=== PATIENT | male | born 1975 | race Caucasian/White ===

== ENCOUNTER 2017-05-06 08:53 | Inpatient (IN) ==
[2017-05-06] MEDS ORDERED: MORPHINE IV PRN (11:55)
[2017-05-06] MEDS ORDERED: DILAUDID IV PRN (12:42)
[2017-05-06] MEDS ORDERED: KEFZOL 1 GM/D5W 1 GM/50 ML IVPB ONE (13:41)
[2017-05-06] MEDS ORDERED: PEPCID ONE (13:41)
[2017-05-06] MEDS ORDERED: REGLAN ONE (13:41)
[2017-05-06] MEDS ORDERED: NEOSPORIN G.U. IRRIGANT ONE (13:48)
[2017-05-06] MEDS ORDERED: XYLOCAINE-MPF 2% ONE (13:50)
[2017-05-06] MEDS ORDERED: DIPRIVAN 1% ONE (13:51)
[2017-05-06] MEDS ORDERED: ROBINUL ONE (14:24)
[2017-05-06] MEDS ORDERED: ZOFRAN ONE (14:24)
[2017-05-06] MEDS ORDERED: DEMEROL ONE ×2 (14:25→15:01)
[2017-05-06] MEDS: DILAUDID ONE ×3 (15:22→15:35)
[2017-05-06] MEDS ORDERED: MILK OF MAGNESIA PO PRN (15:23)
[2017-05-06] MEDS ORDERED: ZOFRAN IV PRN (15:23)
[2017-05-06] MEDS ORDERED: NS 1,000 ML ONE (15:32)
[2017-05-06] MEDS ORDERED: PHENERGAN ONE (15:52)
[2017-05-06] MEDS: TYLENOL PO SCH ×2 (17:37→21:43)
[2017-05-06] MEDS: DILAUDID IV PRN ×2 (18:56→21:34)
[2017-05-06] MEDS: COLACE PO SCH (21:34)
[2017-05-06] MEDS: KEFZOL 1 GM/D5W 1 GM/50 ML IVPB IV SCH (21:34)
[2017-05-07] MEDS: OXY IR PO PRN ×5 (00:13→19:32)
[2017-05-07] MEDS: DILAUDID IV PRN ×6 (01:19→21:25)
[2017-05-07] MEDS ORDERED: BENADRYL PO ONE ×2 (04:08→10:36)
[2017-05-07] MEDS: TYLENOL PO SCH ×4 (04:41→23:33)
[2017-05-07] MEDS: KEFZOL 1 GM/D5W 1 GM/50 ML IVPB IV SCH ×3 (04:49→12:08)
[2017-05-07 05:53] LABS: HEMATOCRIT 32.9 % (42.0-52.0); HEMOGLOBIN 10.8 g/dL (14.0-18.0)
[2017-05-07 05:59] LABS: AGAP 13; BUN 6 mg/dL (8-22); CALCIUM 8.3 mg/dL (8.8-10.2); CHLORIDE 105 mmol/L (98-107); COSMO 281; POTASSIUM 3.5 mmol/L (3.5-5.1); SODIUM 142 mmol/L (136-145); TCO2 24 mmol/L (25-35)
[2017-05-07] MEDS: PERIDEX MT SCH ×3 (07:42→21:24)
[2017-05-07] MEDS: FERROUS SULFATE PO SCH (07:42)
[2017-05-07] MEDS: COLACE PO SCH (21:25)
[2017-05-08 05:52] LABS: HEMATOCRIT 33.7 % (42.0-52.0); HEMOGLOBIN 11.2 g/dL (14.0-18.0)
[2017-05-08] MEDS: TYLENOL PO SCH (09:28)
[2017-05-08] MEDS: OXY IR PO PRN ×2 (09:29→12:32)
[2017-05-08] MEDS: PERIDEX MT SCH (09:29)
[2017-05-08] MEDS: FERROUS SULFATE PO SCH (09:29)
[2017-05-08 11:53] VITALS: BP 130/80
[2017-05-08] MEDS ORDERED: FLUZONE QUAD 2017-2018 SYRINGE IM ONE (12:02)
== END 2017-05-08 13:55 | disposition home health service (06) ==
LOC: DIRADM 08:53 → 4N 10:30
PROVIDERS: ADMIT Orthopaedic Surgery; ATTEND Orthopaedic Surgery

== ENCOUNTER 2018-09-26 13:46 | Observation (INO) ==
[2018-09-26] MEDS ORDERED: D5W 1,000 ML IV PRN (14:44)
[2018-09-26] MEDS ORDERED: DULCOLAX PR PRN (14:44)
[2018-09-26] MEDS ORDERED: PHENOBARBITAL IV PRN (14:44)
[2018-09-26] MEDS ORDERED: MAALOX PLUS LIQUID PO PRN (14:44)
[2018-09-26] MEDS ORDERED: NICODERM PATCH TD PRN (14:44)
[2018-09-26] MEDS ORDERED: ZOFRAN IV PRN (14:44)
[2018-09-26] MEDS ORDERED: SENOKOT PO PRN (14:44)
[2018-09-26] MEDS ORDERED: TYLENOL PO PRN (14:44)
[2018-09-26] MEDS ORDERED: IMODIUM PO PRN (14:44)
[2018-09-26 15:50] LABS: UR AMPHETAMINES QUAL PRESUMPTIVE POSITIVE (NONE DETECT); UR BARBITUATES QUAL NONE DETECTED (NONE DETECT); UR BENZODIAZEPIN QUAL NONE DETECTED (NONE DETECT); UR CANNABINOIDS QUAL NONE DETECTED (NONE DETECT); UR COCAINE QUAL NONE DETECTED (NONE DETECT); UR METHADONE QUAL NONE DETECTED (NONE DETECT); UR METHAMPHETAMINE QUAL PRESUMPTIVE POSITIVE (NONE DETECT); UR OPIATES QUAL NONE DETECTED (NONE DETECT); UR OXYCODONE QUAL NONE DETECTED (NONE DETECT); UR PCP QUAL NONE DETECTED (NONE DETECT); UR PROPOXYPHENE QUAL NONE DETECTED (NONE DETECT); UR TCA QUAL NONE DETECTED (NONE DETECT)
[2018-09-26] MEDS ORDERED: TUBERSOL ID ONE (16:00)
[2018-09-26 16:03] LABS: URINE SOURCE VOIDED
[2018-09-26 16:12] LABS: HEMATOCRIT 46.3 % (42.0-52.0); HEMOGLOBIN 15.7 g/dL (14.0-18.0); INR 0.86; MCH 29.8 PG (27-31); MCHC 33.9 g/dL (33-37); MCV 87.9 FL (81-99); MPV 9.9 FL (7.4-10.4); PROTIME 12.2 Seconds (11.0-16.0); RBC 5.27 XMIL (4.7-6.1); RDW 12.3 % (11.5-14.5); WBC 7.51 X1000 (4.8-10.8)
[2018-09-26 16:16] LABS: BILIRUBIN URINE NEGATIVE (NEGATIVE); BLOOD URINE NEGATIVE (NEGATIVE); CLARITY CLEAR (CLEAR); COLOR YELLOW; GLUCOSE URINE NEGATIVE (NEGATIVE); KETONE URINE TRACE mg/dL (NEGATIVE); LEUKOCYTES URINE TRACE (NEGATIVE); NITRITE URINE NEGATIVE (NEGATIVE); PH URINE 6.5; PROTEIN URINE NEGATIVE (NEGATIVE); UROBILINOGEN URINE 1 mg/dL
[2018-09-26 16:22] LABS: AMYLASE 54 U/L (20-200); LIPASE 24 U/L (13-60)
[2018-09-26 16:25] LABS: AGAP 14; ALBUMIN 4.2 g/dL (3.5-5.0); ALKALINE PHOSPHATASE 100 U/L (32-122); BUN 8 mg/dL (8-22); CALCIUM 8.7 mg/dL (8.8-10.2); CHLORIDE 104 mmol/L (98-107); COSMO 282; CREATININE 0.6 mg/dL (0.7-1.2); ESTIMATED GFR > 60; GLUCOSE 114 mg/dL (70-104); GOT 13 U/L (10-34); GPT 13 U/L (10-44); SODIUM 142 mmol/L (136-145); TCO2 25 mmol/L (25-35)
[2018-09-26 16:32] LABS: URINE BACTERIA 1+ /HFP; URINE CAST NONE SEEN /LPF; URINE CRYSTAL CA OXALATE PRESENT /HPF; URINE EPITHELIAL CELLS <10 /HPF (<10); URINE RBC <10 /HPF (<10); URINE WBC <10 /HPF (<10); URINE YEAST NONE SEEN /HPF
[2018-09-26] MEDS: SEROQUEL PO PRN (20:55)
[2018-09-26] MEDS: MOTRIN PO PRN (20:55)
--- NOTE | 2018-09-27 01:34 | HISTORY AND PHYSICAL ---
CHIEF COMPLAINT: Nausea, vomiting. HISTORY OF PRESENT ILLNESS: Patient is a 43-year-old male who presented to [facility] secondary to nausea, vomiting, abdominal pain, paresthesias. Notes that he has been using and abusing meth. He has been attempting to stop but his withdrawal symptoms as well as habit become too severe. SOCIAL HISTORY: Patient is . He is on disability. Lives at home in [place]. PAST MEDICAL HISTORY: Hypertension, anxiety, depression, bipolar disorder, schizophrenia, previous staph infection, recent head injury, concussion and seizure related to the head injury, recurrent bronchitis. MEDICATIONS: He is on no current prescription medication. ALLERGIES: Haldol and Mobic. REVIEW OF SYSTEMS: CINA score is 13 secondary to crampy abdominal pain, diarrhea, nausea, occasional vomiting. He has been restless, having tremors, frequent yawning, unable to sit still. He is fidgety and nervous. He has had decreased oral intake. Does have a seizure history. He denies any focalized numbness, tingling, weakness in his extremities. Denies any dysuria, urinary frequency, or urgency. Denies constipation, melena, hematochezia. SUBSTANCE ABUSE HISTORY: The patient has had several admissions for substance abuse in the past. Most recently, he was at [facility] for psychiatric treatment 2018. He remembers being in [place] for alcohol in 2006. Notes that he rarely drinks since then. He started drinking alcohol at age 15, currently rarely drinks. Since 2018, he has only had 2 beers. Started meth at age 42, currently using daily. Started opiates at 42, currently taking only when needed. Started smoking at age 15, currently smokes less than a pack a day. PHYSICAL EXAMINATION: VITAL SIGNS: Reviewed. GENERAL: Patient is awake, alert. He is in no current respiratory distress. He is pleasant to talk with although has to be redirected to answer questions. HEENT: Normocephalic. NECK: Supple. CARDIOVASCULAR: Regular rate. No murmurs. CHEST: Clear and nonlabored. ABDOMEN: Soft, nondistended, nontender. EXTREMITIES: Moves all extremities. NEUROLOGIC: No focal changes. SKIN: Warm, dry. No rashes. ASSESSMENT: 1. Nausea, vomiting. 2. Abdominal pain. 3. Myalgias. 4. Tremors. 5. Paresthesias. 6. Polysubstance use and abuse. 7. Schizophrenia. 8. Hypertension. PLAN: We will continue patient in the hospital, place him on Suboxone. Begin counseling. Further orders as needed. cc: Bereket Pederson MD
[2018-09-27] MEDS: PROTONIX PO SCH (07:31)
[2018-09-27] MEDS: THERA M PLUS PO SCH (10:23)
[2018-09-27] MEDS: VITAMIN B-1 PO SCH (10:23)
[2018-09-27] MEDS: FOLIC ACID PO SCH (10:23)
[2018-09-27] MEDS ORDERED: SUBOXONE 2 MG/0.5 MG FILM SL SCH (11:00)
[2018-09-27] MEDS ORDERED: LIBRIUM PO SCH (11:30)
[2018-09-27] MEDS: LIBRIUM PO PRN (19:11)
[2018-09-27] MEDS: SEROQUEL PO PRN (20:42)
[2018-09-27] MEDS: SUBUTEX SL SCH (22:12)
[2018-09-27] MEDS: MOTRIN PO PRN (23:16)
[2018-09-27] MEDS: DESYREL PO PRN (23:16)
--- NOTE | 2018-09-28 00:57 | PROGRESS NOTE ---
DATE: 09/27/2018 SUBJECTIVE: Patient overall notes that he is feeling a little bit better, having less muscle aches, no tremors, less myalgias. Did not sleep well last night but states he feels as though he is going to be able to eat this morning. PHYSICAL EXAMINATION: Vital Signs: Temperature 97.7 degrees, pulse 85, respiratory 18, BP 120/78. General: Patient is awake, alert. Currently, he is in no respiratory distress, still somewhat ill appearing, but seems to be improving. HEENT: Normocephalic. Neck: Supple. Cardiovascular: Regular rate. Chest: Clear and nonlabored. No wheezing. Abdomen: Soft, nondistended. Extremities: Moves all extremities. ASSESSMENT: 1. Nausea, vomiting. 2. Abdominal pain. 3. Myalgias. 4. Paresthesias. 5. Paroxysmal sweating. 6. Polysubstance use and abuse. PLAN: Continue patient in the hospital. Continue Suboxone taper and we will adjust as needed. Expect that he will be here for the next 2 to 3 days. cc: Bereket Pederson MD
[2018-09-28] MEDS: LIBRIUM PO PRN ×2 (05:18→15:24)
[2018-09-28] MEDS: PROTONIX PO SCH (06:27)
[2018-09-28] MEDS: THERA M PLUS PO SCH (08:58)
[2018-09-28] MEDS: FOLIC ACID PO SCH (08:58)
[2018-09-28] MEDS: VITAMIN B-1 PO SCH (08:59)
[2018-09-28] MEDS: SUBUTEX SL SCH ×2 (10:49→23:44)
--- NOTE | 2018-09-28 15:51 | PROGRESS NOTE ---
DATE: 09/28/2018 SUBJECTIVE: Patient notes overall he is feeling a little bit better. Denies any current muscle aches, denies any fevers or chills, denies any dysuria, frequency. PHYSICAL: Vital Signs: Reviewed and stable. Temperature 97, pulse 88, respiratory 20, BP 120/78. General: Patient is awake, alert, very pleasant talk with. HEENT: Normocephalic, atraumatic. DENZEL. Neck: Supple. No JVD. CV: Regular rate. Chest: Clear. Abdomen: Soft. Extremities: Moves all extremities. ASSESSMENT: 1. Nausea, vomiting, abdominal pain. 2. Myalgias . 3. Paresthesias. 4. Paroxysmal sweating. 5. Opiate abuse withdrawal and stabilization. PLAN: Overall patient has continued to improve, currently is on Subutex 2 mg twice daily. Will continue this for stabilization and will follow. cc: Bereket Pederson MD
[2018-09-28] MEDS: ZOFRAN ODT PO PRN ×2 (16:37→23:45)
[2018-09-28] MEDS: DESYREL PO PRN (23:45)
[2018-09-29 04:49] VITALS: BP 127/87
[2018-09-29] MEDS: PROTONIX PO SCH (06:16)
[2018-09-29] MEDS: SUBUTEX SL SCH (08:53)
[2018-09-29] MEDS: THERA M PLUS PO SCH (08:53)
[2018-09-29] MEDS: FOLIC ACID PO SCH (08:53)
[2018-09-29] MEDS: VITAMIN B-1 PO SCH (08:53)
[2018-09-29] MEDS: ZOFRAN ODT PO PRN (08:56)
== END 2018-09-29 12:00 | disposition home or self-care (01) ==
LOC: INTOOBSV 13:46 → SUATTDRO 13:46 → P.DIRADM 13:46 → P.MEDSURG 14:07
PROVIDERS: ADMIT Family Medicine; ATTEND Family Medicine
CPT/HCPCS: 80053; 80104; 80301; 80305; 80307; 80320; 81001; 82055; 82150; 83690; 85027; 85610; A9270; G0431; G0434; G0477; G0480; G6040; J2405